=== PATIENT | male | born 1940 | race Caucasian/White ===

== ENCOUNTER 2021-04-02 09:51 | Day surgery (SDC) | payer BC ==
[~2021-04-02] VITALS: Ht 180.3 cm; Wt 90.0 kg
[2021-04-02] MEDS ORDERED: DILT120T4 PO (10:13)
[2021-04-02] MEDS ORDERED: FLEC100T PO (10:13)
[2021-04-02] MEDS ORDERED: APIX5TAB PO (10:13)
[2021-04-02 10:52] VITALS: BP 123/80
[2021-04-02 10:59] LABS: ANION GAP 9 mmol/L (5-15); CALCIUM 9.1 mg/dL (8.5-10.1); CHLORIDE 109 mmol/L (98-107); CREATININE 1.15 mg/dL (0.7-1.3)
[2021-04-02 11:04] LABS: BASOPHILS % (AUTO) 1 % (0-1); EOSINOPHILS % (AUTO) 5 % (1-7); LYMPHOCYTES % (AUTO) 19 % (22-44); MEAN CORPUSCULAR HEMOGLOBIN 31.3 pg (27.5-34.5); MEAN CORPUSCULAR HGB CONC 33.9 g/dL (33.2-36.2); MEAN PLATELET VOLUME 12.3 fL (7.4-10.4); MONOCYTES % (AUTO) 9 % (2-9); NEUTROPHILS % (AUTO) 66 % (42-75); PLATELET COUNT 99 x10^3/uL (130-400); RED BLOOD COUNT 4.93 x10^6/uL (4.38-5.82); RED CELL DISTRIBUTION WIDTH 13.5 % (9.4-14.8)
[2021-04-02 11:54] LABS: <PLATELET ESTIMATE> DECREASED; GIANT PLATELETS 1+
[2021-04-02 11:55] LABS: <RBC MORPHOLOGY> NORMAL
[2021-04-02] MEDS ORDERED: PROPOFOL 10 MG/ML, 20ML ONE (12:13)
[2021-04-02] MEDS ORDERED: SODIUM CHLORIDE FLUSH 10ML SYR IVF SCH (21:00)
== END 2021-04-02 13:12 | disposition home or self-care (01) ==
LOC: CACL 09:51
PROVIDERS: ATTEND Internal Medicine Cardiovascular Disease
DX: I48.91 Unspecified atrial fibrillation (principal); Z79.899 Other long term (current) drug therapy
CPT/HCPCS: 36415; 80048; 85025; 92960; 93005; J2704